=== PATIENT | male | born 1955 | race Caucasian/White ===

== ENCOUNTER → 2019-03-21 | Outpatient (CLI) | payer BC ==
[~2019-03-21] VITALS: Ht 182.9 cm; Wt 118.6 kg
[2019-03-21 09:15] VITALS: BP 136/74; PULSE 76
== END ==
LOC: LIGHT
DX: E88.81 Metabolic syndrome and other insulin resistance (principal); E11.65 Type 2 diabetes mellitus with hyperglycemia; I10 Essential (primary) hypertension; E66.01 Morbid (severe) obesity due to excess calories; Z68.35 Body mass index [BMI] 35.0-35.9, adult; Z71.3 Dietary counseling and surveillance
CPT/HCPCS: G0463

== ENCOUNTER → 2019-03-26 | Outpatient (CLI) | payer BC | LOC: LIGHT 13:40 | DX: E88.81 Metabolic syndrome and other insulin resistance (principal); E11.65 Type 2 diabetes mellitus with hyperglycemia; I10 Essential (primary) hypertension; E66.9 Obesity, unspecified; Z68.35 Body mass index [BMI] 35.0-35.9, adult; Z71.3 Dietary counseling and surveillance ==